=== PATIENT | female | born 1965 | race Caucasian/White ===

== ENCOUNTER 2020-09-07 23:19 | Emergency (ER) | payer SELFPAY ==
[~2020-09-07] VITALS: Ht 152.4 cm; Wt 57.2 kg
[2020-09-07 23:19] VITALS: BP_SYST 111
--- NOTE | 2020-09-07 23:19 | NUR ---
PT TO BED 6 FOR EVALUATION, PT GOWNED AND ATTACHED TO MONITOR. REPORT GIVEN TO MAY WHO WILL ASSUME CARE.
--- NOTE | 2020-09-07 23:20 | NUR ---
20G IV HL INSERTED INTO RIGHT ARM FLUSHED WITH 10CC NS. SITE IS PATENT AND PT TOLERATED WELL. LABS DRAWN AND SENT.
--- NOTE | 2020-09-07 23:22 | NUR ---
PT AAO BIB ALS UNIT FOR CHEST WALL PAIN AFTER VOMITING AND HAVING AN ANXIETY ATTACK. PT REPORTS 5 EPISODES OF VOMITING AND HYPERVENTILATING AT HOME CAUSING HER MUSCLES TO CRAMP. PT REPORTS STIFF NECK AND HEAD PAIN 8/10 CURRENTLY.
--- NOTE | 2020-09-07 23:25 | NUR ---
EKG DONE AT BEDSIDE. RESULTS TO DR. HORTA FOR INTERPRETATION.
--- NOTE | 2020-09-07 23:42 | NUR ---
ER at bedside examining patient.
[2020-09-07] MEDS ORDERED: NACL 0.9% 1,000 ML IV ONE (23:45)
[2020-09-07 23:59] LABS: BASOPHILS # (AUTO) 0.1 K/uL (0.0-0.2); EOSINOPHILS # (AUTO) 0.2 K/uL (0.0-0.4); EOSINOPHILS % (AUTO) 2.5 % (0.0-4.0); HEMATOCRIT 41.6 % (36-48); HEMOGLOBIN 14.2 g/dL (12.0-16.0); LYMPHOCYTES # (AUTO) 4.7 K/uL (1.0-5.5); LYMPHOCYTES % (AUTO) 54.2 % (20.5-51.5); MEAN CORPUSCULAR HEMOGLOBIN 30 pg (27-31); MEAN CORPUSCULAR HGB CONC 34 % (32-36); MEAN CORPUSCULAR VOLUME 88 fL (79.0-98.0); MONOCYTES # (AUTO) 0.5 K/uL (0.0-1.0); NEUTROPHILS # (AUTO) 3.2 K/uL (1.8-7.7); NEUTROPHILS % (AUTO) 36.3 % (40.0-70.0); PLATELET COUNT (AUTO) 316 K/uL (130-430); RED BLOOD CELL COUNT(AUTO) 4.73 MIL/uL (4.2-6.2); RED CELL DISTRIBUTION WIDTH 13.4 % (9.0-15.0); WHITE BLOOD COUNT (AUTO) 8.8 K/uL (4.8-10.8)
--- NOTE | 2020-09-08 00:08 | NUR ---
Patient's family at bedside.
[2020-09-08 00:10] LABS: CALCIUM 8.8 mg/dL (8.4-11.0); CREATININE 0.86 mg/dL (0.55-1.30)
[2020-09-08 00:27] LABS: ALBUMIN 3.7 g/dL (3.4-4.8); TOTAL BILIRUBIN 0.4 mg/dL (0.0-1.0)
[2020-09-08 00:31] LABS: POTASSIUM 2.7 mmol/L (3.5-5.1)
[2020-09-08] MEDS ORDERED: KCL 20 mEq in NS 1000 mL 1,000 ML IV ONE ×2 (01:15→01:33)
[2020-09-08] MEDS ORDERED: POTASSIUM CHLORIDE 20 MEQ TAB.PRT.SR PO ONE (01:15)
[2020-09-08] MEDS ORDERED: DULO20CA PO (03:24)
--- NOTE | 2020-09-08 03:42 | NUR ---
Patient resting quietly. No acute distress noted. Vital signs within normal range.
[2020-09-08 03:57] LABS: BILIRUBIN,URINE NEGATIVE (NEGATIVE); CLARITY/URINE CLEAR (CLEAR); COLOR,URINE YELLOW (YELLOW); GLUCOSE,URINE NEGATIVE (NEGATIVE); KETONES,URINE 1+ (NEGATIVE); LEUKOCYTE ESTERASE ,URINE NEGATIVE (NEGATIVE); NITRITE, URINE NEGATIVE (NEGATIVE); PROTEIN URINE NEGATIVE (NEGATIVE); UROBILINOGEN,URINE 0.2 (0.2-1.0)
[2020-09-08 03:58] LABS: BLOOD, URINE TRACE (NEGATIVE)
[2020-09-08 03:59] LABS: WBC,URINE 0-3 /HPF (0-3)
[2020-09-08 04:00] LABS: BACTERIA,URINE FEW /HPF (None Seen)
[2020-09-08 04:09] LABS: BARBITURATE, URINE NEGATIVE (NEG <=200); BENZODIAZEPINE, URINE NEGATIVE (NEG <=150); CANNABINOID, URINE POSITIVE (NEG <=50); METHAMPHETAMINES SCREEN,URINE NEGATIVE (NEG <=500); URINE AMPHETAMINE NEGATIVE (NEG <=500); URINE METHADONE NEGATIVE (NEG <=200)
[2020-09-08 04:10] LABS: COCAINE, URINE NEGATIVE (NEG <=150); OPIATE, URINE NEGATIVE (NEG <=100); PHENCYCLIDINE SCREEN,URINE NEGATIVE (NEG <=25); UR TRICYCLIC ANTIDEPRESSANTS NEGATIVE (NEG <=300); URINE OXYCODONE SCREEN NEGATIVE (NEG <=100); URINE PROPOXYPHENE SCREEN NEGATIVE (NEG <=300)
[2020-09-08] MEDS ORDERED: NACL 0.9% 1,000 ML IV ONE (04:15)
--- NOTE | 2020-09-08 04:34 | NUR ---
Urine specimen collected and sent to lab.
[2020-09-08] MEDS ORDERED: ALPR0.25 PO (04:46)
[2020-09-08] MEDS ORDERED: POTA20TA83 PO (04:46)
[2020-09-08 05:45] VITALS: BP_SYST 108
--- NOTE | 2020-09-08 05:45 | NUR ---
Patient given written and verbal discharge instructions and verbalizes understanding. ER MD discussed with patient the results and treatment provided. Patient in stable condition. ID arm band removed. IV catheter removed intact and dressing applied, no active bleeding. Rx of Alprazolam and K-Dur given. Patient educated on pain management and to follow up with PMD. Pain Scale 1/10. Opportunity for questions provided and answered. Medication side effect fact sheet provided.
== END 2020-09-08 05:45 | disposition home or self-care (01) ==
LOC: SED 23:19
DX: F41.0 Panic disorder [episodic paroxysmal anxiety] (principal); E87.6 Hypokalemia; F12.90 Cannabis use, unspecified, uncomplicated; Z79.899 Other long term (current) drug therapy
CPT/HCPCS: 36415; 70450; 71045; 76376; 80053; 80307; 81000; 84484; 85025; 93005; 96361; 96365; 96366; 99285; G0482; J7030; J3480